=== PATIENT | male | born 1970 | race African-American/Black ===

== ENCOUNTER 2023-04-23 16:33 | Emergency (ER) | payer MEDICAID, OTHER ==
[~2023-04-23] VITALS: Ht 172.7 cm; Wt 122.9 kg
[2023-04-23 17:32] VITALS: BP 160/90; TEMP 98.4; O2SAT 100
[2023-04-23] MEDS ORDERED: CYCL5TAB PO (18:16)
[2023-04-23] MEDS ORDERED: CYCLOBENZAPRINE 10 MG TABLET ONE (18:19)
[2023-04-23] MEDS ORDERED: KETOROLAC TROMETHAMINE INJ 30 MG/ML VIAL ONE (18:19)
[2023-04-23] MEDS ORDERED: CYCLOBENZAPRINE 10 MG TABLET PO ONE (18:30)
[2023-04-23] MEDS ORDERED: KETOROLAC TROMETHAMINE INJ 60 MG/2 ML VIAL IM ONE (18:30)
== END 2023-04-23 18:43 | disposition home or self-care (01) ==
LOC: ER 16:33
DX: M25.511 Pain in right shoulder (principal); I10 Essential (primary) hypertension; J45.909 Unspecified asthma, uncomplicated; Z60.2 Problems related to living alone
CPT/HCPCS: 99283; 96372; J1885